=== PATIENT | female | born 1965 | race Caucasian/White ===

== ENCOUNTER 2016-04-23 19:17 | Emergency (ER) | payer MEDICARE, OTHER ==
[~2016-04-23] VITALS: Ht 165.1 cm; Wt 63.5 kg
[2016-04-23] MEDS ORDERED: LEVETIRACETAM (250 MG) 250 MG TABLET PO ONE ×2 (19:55→20:00)
[2016-04-23] MEDS ORDERED: IV NS 0.9% 500 ML IV ONE (19:56)
[2016-04-23] MEDS ORDERED: IV SET PRIMARY 1 EA INFUS.SET MC ONE (19:56)
[2016-04-23] MEDS ORDERED: TDAP [DIPH/PERTUSSIS/TET] 0.5 ML VIAL IM ONE ×2 (19:56→20:00)
[2016-04-23] MEDS ORDERED: LORAZEPAM INJ 2 MG/ML VIAL IV ONE (20:00)
[2016-04-23] MEDS ORDERED: LORAZEPAM INJ 2 MG/ML VIAL ONE (20:00)
[2016-04-23] MEDS ORDERED: IV NS 0.9% 500 ML BAG IV ONE (20:00)
[2016-04-23 20:03] LABS: BASOPHILS # (AUTO) 0.1 /CMM (0.0-0.2); BASOPHILS % (AUTO) 0.6 % (0.0-2.0); DIFF TOTAL % 100 %; EOSINOPHILS # (AUTO) 0.3 /CMM (0.0-0.7); EOSINOPHILS % (AUTO) 2.8 % (0.0-6.0); HEMATOCRIT 39 % (33-45); HEMOGLOBIN 13.4 g/dL (11.5-14.8); LYMPHOCYTES # (AUTO) 1.8 /CMM (0.8-4.8); LYMPHOCYTES % (AUTO) 19.6 % (20.0-44.0); MEAN CORPUSCULAR HEMOGLOBIN 30 PG (26.0-33.0); MEAN CORPUSCULAR HGB CONC 34 g/dl (31.0-36.0); MEAN CORPUSCULAR VOLUME 89 fL (82-100); MONOCYTES # (AUTO) 0.7 /CMM (0.1-1.30); MONOCYTES % (AUTO) 7.5 % (2.0-12.0); NEUTROPHILS # (AUTO) 6.3 /CMM (1.8-8.9); NEUTROPHILS % (AUTO) 69.5 % (43.0-81.0); PLATELET COUNT (AUTO) 369 /CMM (150-450); RED BLOOD CELL COUNT(AUTO) 4.43 MIL/uL (4.0-5.2); WHITE BLOOD COUNT (AUTO) 9.2 K/uL (4.3-11.0)
[2016-04-23 20:12] LABS: ANION GAP 11 (5-14); CALCIUM, SERUM 8.3 mg/dL (8.5-10.1); CARBON DIOXIDE 26 mmol/L (21-32); CHLORIDE 104 mmol/L (98-107); CREATININE 1.2 mg/dL (0.6-1.3); GFR 48 mL/min (>60); GLUCOSE 85 mg/dL (74-106); POTASSIUM 4.1 mmol/L (3.5-5.1); SODIUM SERUM 137 mmol/L (136-145); UREA NITROGEN, BLOOD 11 mg/dL (7-18)
[2016-04-23 20:21] LABS: TROPONIN I < 0.017 ng/mL (0.00-0.056)
[2016-04-23 21:04] VITALS: BP 116/78
== END 2016-04-23 21:04 | disposition home or self-care (01) ==
LOC: ER 19:19
DX: S00.83XA Contusion of other part of head, initial encounter (principal); G93.40 Encephalopathy, unspecified; X58.XXXA Exposure to other specified factors, initial encounter; Y93.89 Activity, other specified; Y92.89 Other specified places as the place of occurrence of the external cause; Y99.8 Other external cause status; C71.9 Malignant neoplasm of brain, unspecified; R73.09 Other abnormal glucose
CPT/HCPCS: 36415; 70450-TC; 70486-TC; 71010-TC; 80048-TC; 82962-TC; 84484-TC; 85025-TC; 90715; A4606; J2060; J7040; Z7610